=== PATIENT | female | born 1995 | race Caucasian/White ===

== ENCOUNTER 2016-12-08 12:53 | Emergency (ER) | payer OTHER ==
[~2016-12-08 12:53] MED LIST: FERR-252 PO; IBUP-974 PO; PREN-385 PO
--- NOTE | 2016-12-08 13:25 | NUR ---
PATIENT LEFT WITHOUT BEING SEEN BY DR. MAGDALENO. NO FURTHER CARE PROVIDED FOR PATIENT.
== END 2016-12-08 13:25 | disposition left against medical advice (07) ==
LOC: MED 12:53
DX: R30.9 Painful micturition, unspecified (principal); Z53.21 Procedure and treatment not carried out due to patient leaving prior to being seen by health care provider

== ENCOUNTER 2021-01-04 18:19 | Emergency (ER) | payer OTHER ==
[~2021-01-04] VITALS: Ht 154.9 cm; Wt 113.4 kg
[2021-01-04 18:25] VITALS: BP 160/97
--- NOTE | 2021-01-04 18:30 | NUR ---
PT AMB TO BED 11.
[2021-01-04] MEDS ORDERED: LIDOCAINE 2% 1000 MG/50 ML VIAL INJ ONE (18:50)
--- NOTE | 2021-01-04 18:50 | NUR ---
25 Y FEMALE C/O RIGHT THUMB INJURY X TODAY. PT STATED "SHE WAS TRYING TO OPEN A GAS CAN WHEN SHE FELT A POP AND HER NAIL CAME OFF." PT STATED PAIN RADIATED UP TO HER ARM WITH INITAL INJURY, BUT HAS YET RESOLVED ITSELF. PMH: C AUDELIA LÓPEZ
--- NOTE | 2021-01-04 18:51 | NUR ---
LIDOCAINE PLACED BEDSIDE FOR ER MD DR. CANO TO USE DURING PROCEDURE
--- NOTE | 2021-01-04 19:24 | NUR ---
Pt report given to FRANKLIN GILMAN. Transfer of care at this time.
--- NOTE | 2021-01-04 19:39 | NUR ---
Dr. Malone examining patient.
--- NOTE | 2021-01-04 19:41 | NUR ---
PATIENT SITTING IN BED LOCKED INLOWEST POSITION W X1 SIDE RAIL UP. DENIES ANY PAIN. BREATHING EVEN AND UNLABORED. NAD NOTED, WILL CONTINUE TO MONITOR.
--- NOTE | 2021-01-04 19:48 | NUR ---
ERMD AT BEDSIDE FOR PATIENT CARE.
[2021-01-04] MEDS ORDERED: BACITRACIN OINT 500 UNITS/GM PKT TP ONE ×2 (19:54→19:55)
--- NOTE | 2021-01-04 20:00 | NUR ---
BACITRACIN W LOOSE WRAP APPLIED TO PT FINGER NAIL PER ERMD ORDER.
[2021-01-04 20:04] VITALS: BP 160/97
--- NOTE | 2021-01-04 20:04 | NUR ---
Patient discharged with v/s stable. Written and verbal after care instructions given and explained. Patient verbalized understanding. Ambulatory with steady gait. All questions addressed prior to discharge. Advised to follow up with PMD.
== END 2021-01-04 20:04 | disposition home or self-care (01) ==
LOC: MED 18:19
DX: S61.101A Unspecified open wound of right thumb with damage to nail, initial encounter (principal); Z79.1 Long term (current) use of non-steroidal anti-inflammatories (NSAID); Z79.899 Other long term (current) drug therapy; Z88.6 Allergy status to analgesic agent; W23.0XXA Caught, crushed, jammed, or pinched between moving objects, initial encounter; Y93.89 Activity, other specified; Y92.89 Other specified places as the place of occurrence of the external cause; Y99.8 Other external cause status
CPT/HCPCS: 11730; 99284; J2001

== ENCOUNTER 2021-11-14 18:42 | Emergency (ER) | payer OTHER ==
[~2021-11-14] VITALS: Ht 154.9 cm; Wt 108.9 kg
[2021-11-14 18:50] VITALS: BP 127/66
--- NOTE | 2021-11-14 18:56 | NUR ---
pt ambulated to the car at this time
--- NOTE | 2021-11-14 19:40 | NUR ---
PT CALLED INSIDE LOBBY AND OUTSIDE, NO RESPONSE
--- NOTE | 2021-11-14 19:47 | NUR ---
PT CALLED ON PHONE, NO RESPONSE
--- NOTE | 2021-11-14 19:48 | NUR ---
PATIENT LEFT WITHOUT BEING SEEN BY DR. CODY. NO FURTHER CARE PROVIDED FOR PATIENT.
== END 2021-11-14 19:48 | disposition left against medical advice (07) ==
LOC: MED 18:42
DX: M25.572 Pain in left ankle and joints of left foot (principal); Z53.21 Procedure and treatment not carried out due to patient leaving prior to being seen by health care provider

== ENCOUNTER 2023-09-20 16:11 | Emergency (ER) | payer OTHER ==
[~2023-09-20] VITALS: Ht 154.9 cm; Wt 93.0 kg
[2023-09-20 16:57] VITALS: BP 125/56; PULSE 55; RESP 19; TEMP 97.8; O2SAT 100
[2023-09-20] MEDS: KETOROLAC 60 MG/2 ML VIAL IM ONE (18:40)
[2023-09-20 18:53] LABS: APPEARANCE,URINE TURBID (CLEAR); BILIRUBIN,URINE NEGATIVE (NEGATIVE); BLOOD, URINE NEGATIVE (NEGATIVE); COLOR,URINE YELLOW (YELLOW); LEUKOCYTE ESTERASE ,URINE TRACE (NEGATIVE); NITRITE, URINE NEGATIVE (NEGATIVE); PROTEIN,URINE NEGATIVE (NEGATIVE); UGLUCOSE NEGATIVE (NEGATIVE); UROBILINOGEN,URINE 0.2 EU/dL (0.2 - 1)
[2023-09-20 19:03] LABS: BACTERIA,URINE 10-30 (MOD) /HPF (None Seen); RBC,URINE 0-5 /HPF (0-5); SQUAMOUS EPITHELIAL CELL,UR 4-10 (MOD) /LPF (0-3 (FEW)); WBC,URINE 0-5 /HPF (0-5)
[2023-09-20] MEDS ORDERED: NAPR-337 PO (19:23)
[2023-09-20] MEDS ORDERED: CIPR500T4 PO (19:23)
[2023-09-20] MEDS ORDERED: cefTRIAXone 1,000 MG VIAL ONE (19:24)
[2023-09-20] MEDS ORDERED: LIDOCAINE MPF 1% 5 ML ONE (19:24)
[2023-09-20] MEDS: cefTRIAXone 1,000 MG in LIDOCAINE MPF 1% 2.1 ML IM ONE (19:31)
== END 2023-09-20 19:32 | disposition home or self-care (01) ==
LOC: MED 16:11
DX: N39.0 Urinary tract infection, site not specified (principal); Z79.1 Long term (current) use of non-steroidal anti-inflammatories (NSAID); Z79.2 Long term (current) use of antibiotics; Z79.899 Other long term (current) drug therapy; Z88.6 Allergy status to analgesic agent; Z88.8 Allergy status to other drugs, medicaments and biological substances
CPT/HCPCS: 81001; 81025; 87086; 96372; 99284; J0696; J1885; J2001